=== PATIENT | male | born 1995 | race Asian ===

== ENCOUNTER 2019-06-04 08:58 | Day surgery (SDC) | payer OTHER ==
[~2019-06-04] VITALS: Ht 182.9 cm; Wt 102.5 kg
[~2019-06-04 08:58] MED LIST: CelecoXIB 400 MG CAP PO SCH; GABAPENTIN 300 MG CAP PO SCH; LR 1,000 ML IV SCH; PERCOCET 5MG/325MG TAB PO SCH; VANCOMYCIN HCL 1,000 MG, VIAL MATE ADAPTER 1 EACH in D5W 250 ML IV SCH
[2019-06-04] MEDS ORDERED: LIDOCAINE 2% INJ 100 MG/5 ML SDV (FOR ANES.) As Ordered ONE (09:39)
[2019-06-04] MEDS ORDERED: ROCURONIUM BROMIDE 50 MG/5 ML VIAL As Ordered ONE ×2 (09:39→12:52)
[2019-06-04] MEDS ORDERED: dexameTHASONE 4 MG/ML 1ML VIAL (J1100) As Ordered ONE (09:39)
[2019-06-04] MEDS ORDERED: PROPOFOL 200 MG/20 ML VIAL As Ordered ONE ×2 (09:39→16:14)
[2019-06-04] MEDS ORDERED: MIDAZOLAM INJ 2 MG/2 ML VIAL (J2250) As Ordered ONE (09:40)
[2019-06-04] MEDS ORDERED: fentaNYL 250 MCG/5 ML INJECTION (J3010) As Ordered ONE (09:40)
[2019-06-04] MEDS ORDERED: PERCOCET 5MG/325MG TAB PO ONE (10:15)
[2019-06-04] MEDS ORDERED: VANCOMYCIN HCL 1,000 MG, VIAL MATE ADAPTER 1 EACH in D5W 250 ML IV ONE ×2 (10:15→23:00)
[2019-06-04] MEDS ORDERED: GABAPENTIN 300 MG CAP PO ONE (10:15)
[2019-06-04] MEDS ORDERED: CelecoXIB 400 MG CAP PO ONE (10:15)
[2019-06-04] MEDS ORDERED: THROMBIN SOLN 20,000 UNITS KIT As Ordered ONE (11:17)
[2019-06-04] MEDS ORDERED: BUPIVACAINE HCL 0.25% 10 ML VIAL As Ordered ONE (11:17)
[2019-06-04] MEDS ORDERED: TRANEXAMIC ACID 100 MG/ML 10ML VIAL As Ordered ONE (11:17)
[2019-06-04] MEDS ORDERED: BUPIVACAINE LIPOSOME/PF 1.3% 20ML VIAL (13.3MG/ML)(EXPAREL)(C9290 PER1MG) As Ordered ONE (11:18)
[2019-06-04] MEDS ORDERED: BUPIVACAINE/EPIN 0.5% 30 ML VIAL As Ordered ONE (11:18)
[2019-06-04] MEDS ORDERED: EPINEPHrine INJ 1 MG/ML 1ML AMP As Ordered ONE (11:18)
[2019-06-04] MEDS ORDERED: BACITRACIN PWD 50,000 UNITS VIAL As Ordered ONE (11:18)
[2019-06-04] MEDS ORDERED: NEOSTIGMINE 10 MG/10 ML VIAL (J2710) As Ordered ONE (13:33)
[2019-06-04] MEDS ORDERED: GLYCOPYRROLATE INJ 0.2 MG/ML 2 ML VIAL As Ordered ONE (13:33)
--- NOTE | 2019-06-04 13:38 | REP ---
Bar spine intraoperative cross-table lateral view: The tip of the metallic focus posterior to the L5/S1 disc space. Electronically Signed by Earnest Turner MD 06/04/2019 01:29 P
[2019-06-04] MEDS ORDERED: SUGAMMADEX SODIUM 500 MG/5 ML VIAL (BRIDION) As Ordered ONE (13:52)
[2019-06-04] MEDS ORDERED: HYDROmorphone HCL 2 MG/ML 1ML VIAL (J1170) As Ordered ONE (14:16)
[2019-06-04] MEDS ORDERED: ONDANSETRON 4MG/2ML VIAL (J2405) As Ordered ONE (14:21)
[2019-06-04] MEDS ORDERED: ePHEDrine SULFATE 25 MG/5 ML(5MG/ML) SYRINGE As Ordered ONE (14:23)
[2019-06-04] MEDS ORDERED: HYDROMORPHONE HCL 0.5 MG/ 0.5 ML SYRINGE (J1170 PER 1) IV PRN ×2 (15:15)
[2019-06-04] MEDS ORDERED: LR 1,000 ML IV SCH (15:15)
[2019-06-04] MEDS ORDERED: fentaNYL 100 MCG/2 ML INJECTION (J3010) IV PRN (15:15)
[2019-06-04] MEDS ORDERED: oxyCODONE 5MG TAB PO PRN (15:15)
[2019-06-04] MEDS ORDERED: PROMETHAZINE INJ 25 MG/ML VIAL (J2550) IV PRN (15:15)
[2019-06-04] MEDS ORDERED: PERCOCET 5MG/325MG TAB PO PRN ×2 (15:15)
[2019-06-04] MEDS ORDERED: CYCLOBENZAPRINE 10 MG TAB PO PRN (15:30)
[2019-06-04 15:56] VITALS: BP 139/81
[2019-06-04 16:30] VITALS: BP 124/75
[2019-06-04] MEDS: LR 1,000 ML IV SCH (17:00)
[2019-06-04 17:19] VITALS: BP 124/75
[2019-06-04 18:24] VITALS: BP 117/74
[2019-06-04 19:36] VITALS: BP 125/74
[2019-06-04 23:38] VITALS: BP 134/64
[2019-06-05] MEDS: LR 1,000 ML IV SCH (04:00)
[2019-06-05 06:00] VITALS: BP 114/61
[2019-06-05] MEDS ORDERED: CelecoXIB (CeleBREX) 100 MG CAP PO ONE (09:00)
[2019-06-05] MEDS ORDERED: METAMUCIL (PSYLLIUM) PACKET PO SCH (09:00)
--- NOTE | 2019-06-05 22:32 | RO ---
DATE OF PROCEDURE: 06/04/2019 PREOPERATIVE DIAGNOSIS: Left lower extremity radiculopathy secondary to large disc herniation at L5-S1 on the left side. POSTOPERATIVE DIAGNOSIS: PROCEDURE PERFORMED: Left L5-S1 microdiscectomy for removal of disc material. INTRAOPERATIVE FINDINGS: Include large disc herniation. SURGEON: Dr. Cody Mckinney GAMING CAGE CASHIER: Alpa Nelson, Physician Contract Writer ANESTHESIA: General, Dr. Kumari ESTIMATED BLOOD LOSS: Less than 15 mL, replaced with crystalloid. No complications. INDICATION: This is a 23-year-old male who reported more than a year of symptoms running down the left lower extremity. He had an MRI scan, which reflected a large disc herniation at L5-S1. The patient elects for operative intervention. Consent reviewed in detail with the patient, including a smith discussion of the pathology involved, the procedure proposed, alternatives including doing nothing and risks including not limited to pain, failure, infection, bleeding blood loss, incomplete relief of symptoms, need for additional surgery or other issues. The patient agrees to proceed. DESCRIPTION OF PROCEDURE: Identified in the holding area, site and side verified, brought to the operating room. Once anesthesia was administered, he was positioned on the Ad frame for exposure of the lumbar spine. I helped position the patient, axillary rolls were utilized, knees were slightly flexed, Ad was elevated. Once I and the assembler musical instruments were comfortable with the patient's positioning, he was then sterilely prepped and draped in the usual fashion for exposure of the lumbar spine. We accomplished a time-out. After this was accomplished, Ms. Nelson injected 0.25% Marcaine with epinephrine over the proposed incision. Next, I did utilize 3.5 loupe magnification and a headlamp at first and also utilized the operating microscope. I stood on the patient's left side. I made the incision with a 10 blade, developed down through skin and subcuticular tissues to the posterior lumbar fascia. The posterior lumbar fascia was sharply divided, and the dissection continued down through the L5 lamina. Once I had identified the L5 lamina, I drilled the divot in the lamina using the high-speed bur and placed the Diaz-James in the divot. At this stage, we obtained a cross-table lateral x-ray that confirmed our level and then we proceeded with the remainder of the procedure. At this point, the operating microscope was brought in for the remainder of the procedure. Use of operating microscope facilitated better visualization by Ms. Nelson from the contralateral right side of the table as well as safe use of the high-speed bur. The high-speed bur was utilized to implement the left unilateral laminotomy at the L5 level extending to the bare area of L5 and extending inferiorly to the bare area of S1. The facet complex was largely preserved, perhaps one bur width of the L5-S1 facet was removed in the course of this decompression. Pituitaries and curettes were utilized to elevate the ligamentum flavum. It was removed using Leksells and Kerrisons. Next, I directly visualized the thecal sac, and the disc herniation was elevating the thecal sac and deviating it quite hard to the right. I further freed the thecal sac up with a Diaz-James, differentiating it from the large disc herniation. I created a rent in the posterior longitudinal ligament. The disc was extruded and directly subligamentous. The extruded disc material was expressed through the rent. The entirety of the disc herniation was quite large and came out mostly in one piece. There was one larger piece and several piecemeal smaller pieces that came out separately. I did explore the interspace to make sure there was no additional friable disc material as well as the subligamentous space to make sure there was no more extruded disc material. Bipolar cautery was utilized for hemostasis along with thrombin Gelfoam, the traversing S1 nerve root, which was directly visualized and verified to be decompressed. I did decompress soft tissue from the subarticular space on the left at L5-S1 as well. Irrigation was accomplished. No active bleeding was appreciated. No cerebrospinal fluid (CSF) leak was appreciated. All thrombin Gelfoam and strips were removed. Posterior lumbar fascia was reapproximated with interrupted stitch, deep dermis with interrupted stitch. Prineo dressing was utilized on the skin. Once this was accomplished, the patient log-rolled to hospital bed, extubated, moved to recovery room in good condition. For further details, please refer to the medical record.
== END 2019-06-05 10:00 | disposition home or self-care (01) ==
LOC: M SDC 08:58 → M MS5PR 15:45 → M SDC 06-05 10:00
PROVIDERS: ATTEND Orthopaedic Surgery
DX: M51.27 Other intervertebral disc displacement, lumbosacral region (principal); M54.16 Radiculopathy, lumbar region; H91.8X1 Other specified hearing loss, right ear; Z88.0 Allergy status to penicillin
CPT/HCPCS: 36415; 63030; 72100; 86850; 86900; 86901; 88304; C9290; J1100; J1170; J2250; J2405; J3010; J3370

== ENCOUNTER → 2024-01-28 | Outpatient (REF) | payer OTHER ==
[2024-01-28 19:18] LABS: TOTAL 25(OH) VITAMIN D 39.9 NG/ML (20.0-100.0)
[2024-01-28 19:19] LABS: THYROID STIMULATING HORMONE 1.302 uIU/ML (0.55-4.78)
== END ==
LOC: M LAB REF 18:16
PROVIDERS: ATTEND Pediatrics
DX: Z68.27 Body mass index [BMI] 27.0-27.9, adult (principal); E66.3 Overweight; E55.9 Vitamin D deficiency, unspecified